=== PATIENT | male | born 1980 | race Two or more races ===

== ENCOUNTER 2019-04-20 13:15 | Inpatient (IN) | payer OTHER ==
[2019-04-20] MEDS ORDERED: MENTHOL/PHENOL 1 EACH UD MM PRN (14:34)
[2019-04-20] MEDS ORDERED: ACETAMINOPHEN 325 MG TABLET (FP) PO PRN (14:34)
[2019-04-20] MEDS ORDERED: METHOCARBAMOL 500 MG TABLET PO PRN (14:34)
[2019-04-20] MEDS ORDERED: ONDANSETRON *ODT* 4 MG TABLET SL PRN (14:34)
[2019-04-20] MEDS ORDERED: MELATONIN 5 MG TABLETS PO PRN (14:34)
[2019-04-20] MEDS ORDERED: hydrOXYzine PAMOATE 25 MG CAPSULE (FP) PO PRN (14:34)
[2019-04-20] MEDS ORDERED: NICOTINE POLACRILEX 4 MG GUM BUC PRN (14:34)
[2019-04-20] MEDS ORDERED: MAGNESIUM HYDROX 2400MG/30ML ORAL SUSPENSION 30 ML CUP PO PRN (14:34)
[2019-04-20] MEDS ORDERED: P-EPHED 60MG/TRIPROLIDI 2.5MG TABLET PO PRN (14:34)
[2019-04-20] MEDS ORDERED: MAGNESIUM CITRATE 300 ML BOTTLE PO PRN (14:34)
[2019-04-20] MEDS ORDERED: MAG HYDROX/AL HYDROX/SIMETH 30 ML UNIT-DOSE CUP PO PRN (14:34)
[2019-04-20] MEDS ORDERED: IBUPROFEN 400 MG TABLET (FP) PO PRN (14:34)
[2019-04-20] MEDS ORDERED: chlordiazePOXIDE HCL 25 MG CAPSULE PO PRN (14:34)
[2019-04-20] MEDS ORDERED: chlordiazePOXIDE HCL 25 MG CAPSULE PO ONE (14:34)
--- NOTE | 2019-04-20 14:34 | HP ---
CIWA Score Nausea/Vomitin Muscle Tremors: 4-Moderate,w/Arms Extend Anxiety: 4-Mod. Anxious/Guarded Agitation: 4-Moderately Restless Paroxysmal Sweats: 3 Orientation: 0-Oriented Tacttile Disturbances: 0-None Auditory Disturbances: 0-None Visual Disturbances: 0-None Headache: 1-Very Mild CIWA-Ar Total Score: 19 - Admission Criteria OASAS Guidelines: Admission for Medically Managed Detox: Requires at least one of the followin. CIWA greater than 12 2. Seizures within the past 24 hours 3. Delirium tremens within the past 24 hours 4. Hallucinations within the past 24 hours 5. Acute intervention needed for co occurring medical disorder 6. Acute intervention needed for co occurring psychiatric disorder 7. Severe withdrawal that cannot be handled at a lower level of care (continued vomiting, continued diarrhea, abnormal vital signs) requiring intravenous medication and/or fluids 8. Admission ROS S - HPI Chief Complaint: I need to stop drinking I need help. Allergies/Adverse Reactions: Allergies Allergy/AdvReac Type Severity Reaction Status Date / Time acetaminophen [From Tylenol] Allergy Verified 04/20/19 14:31 History of Present Illness: pt is a 39yrold male a history of alcohol dependence seeking detox for treatment. Pt has a h/o HTN, seizures, spinal surgery. pt has a h/o of jumping off the roof 2012 injuring both feet, leg and head. Pt has scar to back of head from fall. Pt uses wheelchair to assist with ambulating. pt states he fell with his wheelchair three days ago and left eyebrow cut noted. Cut is dry and healing. Exam Limitations: No Limitations - Ebola screening Have you traveled outside of the country in the last 21 days: No (N) Have you had contact with anyone from an Ebola affected area: No Have you been sick,other than usual withdrawal symptoms: No Do you have a fever: No - Review of Systems Constitutional: Diaphoresis, Loss of Appetite, Night Sweats, Changes in sleep, Unintentional Wgt. Loss EENT: reports: Blurred Vision, Nose Congestion Respiratory: reports: No Symptoms reported Cardiac: reports: Lightheadedness GI: reports: Nausea, Poor Fluid Intake, Vomiting : reports: No Symptoms Reported Musculoskeletal: reports: Back Pain Integumentary: reports: Bruising (to left eyebrow), Flushing Neuro: reports: Headache, Seizure (last seizure 2months ago), Tingling, Tremors Endocrine: reports: Excessive Sweating, Flushing, Intolerance to Cold, Intolerance to Heat Hematology: reports: No Symptoms Reported Psychiatric: reports: Judgement Intact, Mood/Affect Appropiate, Orientated x3, Agitated, Anxious Other Systems: Reviewed and Negative Patient History - Patient Medical History Hx Anemia: No Hx Asthma: No Hx Chronic Obstructive Pulmonary Disease (COPD): No Hx Cancer: No Hx Cardiac Disorders: No Hx Congestive Heart Failure: No Hx Hypertension: Yes Hx Hypercholesterolemia: No Hx Pacemaker: No HX Cerebrovascular Accident: No Hx Seizures: Yes (2months ago) Hx Dementia: No Hx Diabetes: No Hx Gastrointestinal Disorders: No Hx Liver Disease: No Hx Genitourinary Disorders: No Hx Sexually Transmitted Disorders: No Hx Renal Disease (ESRD): No Hx Thyroid Disease: No Hx Human Immunodeficiency Virus (HIV): No Hx Hepatitis C: No Hx Depression: Yes Hx Suicide Attempt: Yes (in the past jumping off the roof; pt denies any s/h ideations) Hx Bipolar Disorder: Yes Hx Schizophrenia: Yes Other Medical History: anxiety - Patient Surgical History Hx Orthopedic Surgery: Yes (spinal surgery) - PPD History Previous Implant?: Yes Documented Results: Negative w/o proof Implanted On Prior [facility] Admission?: Yes PPD to be Administered?: Yes - Reproductive History Patient is a Female of Child Bearing Age (11 -55 yrs old): No - Smoking Cessation Smoking history: Current every day smoker Have you smoked in the past 12 months: Yes Aproximately how many cigarettes per day: 10 Hx Chewing Tobacco Use: No Initiated information on smoking cessation: Yes 'Breaking Loose' booklet given: 04/20/19 - Substance & Tx. History Hx Alcohol Use: Yes Hx Substance Use: No Substance Use Type: Alcohol Hx Substance Use Treatment: No - Substances abused Alcohol Substance route: Oral Frequency: Daily Amount used: 3 pints of whiskey Age of first use: 11 Date of last use: 04/19/19 Family Disease History - Family Disease History Family History: Denies Admission Physical Exam BHS - Physical General Appearance: Yes: Appropriately Dressed, Moderate Distress, Tremorous, Irritable, Sweating, Anxious HEENTM: Yes: Normal Voice, Nasal Congestion, Rhinorrhea Respiratory: Yes: Lungs Clear, Normal Breath Sounds, No Respiratory Distress Neck: Yes: No masses,lesions,Nodules Breast: Yes: Within Normal Limits Cardiology: Yes: Regular Rhythm, Regular Rate, S1, S2 Abdominal: Yes: Normal Bowel Sounds, Non Tender, Soft Genitourinary: Yes: Within Normal Limits Back: Yes: Normal Inspection Musculoskeletal: Yes: full range of Motion, Back pain Extremities: Yes: Normal Capillary Refill, Tremors Neurological: Yes: Fully Oriented, Alert, Normal Response Integumentary: Yes: Diaphoresis Lymphatic: Yes: Within Normal Limits - Diagnostic (1) Alcohol dependence with uncomplicated withdrawal Current Visit: Yes Status: Chronic (2) H/O fall Current Visit: Yes Status: Chronic (3) H/O Spinal surgery Current Visit: Yes Status: Chronic (4) Nicotine dependence Current Visit: Yes Status: Chronic Qualifiers: Nicotine product type: cigarettes Substance use status: uncomplicated Qualified Code(s): F17.210 - Nicotine dependence, cigarettes, uncomplicated (5) Seizures Current Visit: Yes Status: Chronic Comment: last seizure 2 months ago Cleared for Admission [facility] - Detox or Rehab [facility] Level of Care: Medically Managed Detox Regimen/Protocol: Not Applicable (pt will be on ativan taper) Inpatient Rehab Admission - Rehab Decision to Admit Inpatient rehab admission?: No
[2019-04-20 14:53] VITALS: BMI 22.6
[2019-04-20] MEDS ORDERED: LORazepam 1 MG TABLET PO PRN (15:06)
[2019-04-20] MEDS ORDERED: TRIMETHOBENZAMIDE HCL 200MG/2ML INJ IM PRN (15:20)
[2019-04-20] MEDS ORDERED: TRIMETHOBENZAMIDE HCL 200MG/2ML INJ IM ONE (15:20)
[2019-04-20] MEDS ORDERED: LORazepam 2 MG TABLET PO ONE (15:25)
[2019-04-20] MEDS ORDERED: METOPROLOL TARTRATE 50 MG TABLET (FP) PO ONE (15:39)
[2019-04-20] MEDS ORDERED: chlordiazePOXIDE HCL 25 MG CAPSULE PO SCH (17:00)
[2019-04-20] MEDS: LORazepam 2 MG TABLET PO SCH ×2 (17:55→23:32)
[2019-04-20] MEDS: BACITRACIN 0.9 GM PACKET TP SCH (23:31)
[2019-04-20] MEDS: METOPROLOL TARTRATE 50 MG TABLET (FP) PO SCH (23:31)
[2019-04-20] MEDS: THIAMINE HCL 100 MG TABLET (FP) PO SCH (23:32)
[2019-04-20] MEDS: LACOSAMIDE 50 MG TABLET PO SCH (23:32)
[2019-04-21] MEDS: LORazepam 2 MG TABLET PO SCH ×2 (06:28→10:40)
[2019-04-21 10:40] LABS: ALBUMIN 3.4 g/dl (3.4-5.0); BILIRUBIN,TOTAL 0.7 mg/dL (0.2-1); CALCIUM 9.2 mg/dL (8.5-10.1); CREATININE 0.7 mg/dL (0.55-1.3); POTASSIUM 3.6 mmol/L (3.5-5.1); TOT PROT 7.2 g/dl (6.4-8.2)
[2019-04-21] MEDS: PRENATAL VITAMINS W/ FOLIC ACID TABLET (FP) PO SCH (10:40)
[2019-04-21] MEDS: LACOSAMIDE 50 MG TABLET PO SCH ×2 (10:40→22:46)
[2019-04-21] MEDS: NICOTINE 21 MG/24 HOURS TOPICAL PATCH TD SCH (10:40)
[2019-04-21] MEDS: BACITRACIN 0.9 GM PACKET TP SCH ×2 (10:40→22:47)
[2019-04-21] MEDS: METOPROLOL TARTRATE 50 MG TABLET (FP) PO SCH ×2 (10:40→22:46)
--- NOTE | 2019-04-21 11:23 | PN ---
S CIWA - CIWA Score Nausea/Vomitin-Mild Nausea/No Vomiting Muscle Tremors: 4-Moderate,w/Arms Extend Anxiety: 3 Agitation: 4-Moderately Restless Paroxysmal Sweats: 3 Orientation: 0-Oriented Tacttile Disturbances: 0-None Auditory Disturbances: 0-None Visual Disturbances: 0-None Headache: 0-None Present CIWA-Ar Total Score: 15 BHS Progress Note (SOAP) Subjective: sweats shakes low appetite Objective: 04/21/19 11:22 Vital Signs Temperature 98.2 F 04/21/19 09:27 Pulse Rate 89 04/21/19 09:27 Respiratory Rate 18 04/21/19 09:27 Blood Pressure 124/80 04/21/19 09:27 O2 Sat by Pulse Oximetry (%) Laboratory Tests 04/21/19 08:20 Sodium 140 Potassium 3.6 Chloride 103 Carbon Dioxide 27 Anion Gap 10 BUN 9.0 Creatinine 0.7 Est GFR (CKD-EPI)AfAm 136.81 Est GFR (CKD-EPI)NonAf 118.04 Random Glucose 113 H Calcium 9.2 Total Bilirubin 0.7 AST 92 H ALT 49 Alkaline Phosphatase 118 H Total Protein 7.2 Albumin 3.4 labs noted rest of labs pending aaox3 in wheelchair for ambulating no acute distress Assessment: 04/21/19 11:22 withdrawal sx Plan: continue detox increase fluids pending rest of labs
[2019-04-21 11:51] LABS: HEMATOCRIT 33.9 % (35.4-49); HEMOGLOBIN 10.8 GM/dL (11.7-16.9); MCH 26.5 pg (25.7-33.7); MCHC 31.9 g/dl (32.0-35.9); MEAN PLT VOLUME 8.3 fl (7.5-11.1); RBC 4.08 M/mm3 (4.00-5.60); RDW 24.7 % (11.9-15.9); WHITE BLOOD COUNT 6.1 K/mm3 (4.0-10.0)
[2019-04-21] MEDS ORDERED: chlordiazePOXIDE HCL 25 MG CAPSULE PO SCH (17:00)
--- NOTE | 2019-04-21 17:49 | CONSULT ---
[facility] Psychiatric Consult - Data Date of interview: 04/21/19 Admission source: [facility] Identifying data: First admission to [facility] for this 39 y/o -born male referred, by his psychiatric outpatient team, to [facility] for detoxification ( alcohol). Interviewed at [address] [place] [address]. Patient is single, no children, domiciled, unemployed (disabled) and supported by his relatives. Substance Abuse History: Discussed patient. Started using alcohol around age 14. Consumes qa minimum of 3 pints of whiskey daily. See [facility] report for details : Smoking history: Current every day smoker. Have you smoked in the past 12 months: Yes. Aproximately how many cigarettes per day: 10. Hx Chewing Tobacco Use: No. Initiated information on smoking cessation: Yes. 'Breaking Loose' booklet given: 04/20/19. - Substance & Tx. History. Hx Alcohol Use: Yes. Hx Substance Use: No. Substance Use Type: Alcohol. Hx Substance Use Treatment: No. - Substances abused. Alcohol. Substance route: Oral. Frequency: Daily. Amount used: 3 pints of whiskey. Age of first use: 11. Date of last use: 04/19/19 Medical History: Remarkable for severe spinal injury from a suicide attempt in 2011 (jumping off an overpass in [place]) that led to his wheelchair-bound situation, hypertension and withdrawal-related seizures. Psychiatric History: Patient reports a history of psychiatric hospitalizations ( [facility], [facility]). Last hospitalized in 2011. Mr Smith has been diagnosed with MDD and Anxiety Disorder. He states that he is followed by a psychiatric, ACT-like, team for medication management (lexapro, trazodone : doses not recalled). Call to [facility] ([phone]) went unanswered. Noted serious history of a suicide attempt, via jumping from an overpass in [place] in 2012 : wheelchair-bound since the event (spinal injuries, head trauma, injury to lower extremities). Physical/Sexual Abuse/Trauma History: Patient denies history of abuse. 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 Additional Comment: Toxicology : not available for review. Mental Status Exam - Mental Status Exam Alert and Oriented to: Time, Place, Person Cognitive Function: Good Patient Appearance: Well Groomed (wheelchair-bound) Mood: Hopeful Affect: Appropriate, Normal Range Patient Behavior: Appropriate, Cooperative (friendly and well-mannered) Speech Pattern: Clear, Appropriate Voice Loudness: Normal Thought Process: Intact, Goal Oriented Thought Disorder: Not Present Hallucinations: Denies Suicidal Ideation: Denies Homicidal Ideation: Denies Insight/Judgement: Poor Sleep: Poorly, Difficulty falling asleep Appetite: Poor, Weight loss Gait/Station: Other (moves around in a wheelchair) Psychiatric Findings - Problem List ([place] 1, 2,3) (1) Alcohol dependence with uncomplicated withdrawal Current Visit: Yes Status: Acute (2) Nicotine dependence Current Visit: Yes Status: Chronic Qualifiers: Nicotine product type: cigarettes Substance use status: uncomplicated Qualified Code(s): F17.210 - Nicotine dependence, cigarettes, uncomplicated (3) History of depression Current Visit: Yes Status: Chronic (4) Insomnia Current Visit: Yes Status: Chronic - Initial Treatment Plan Initial Treatment Plan: Psychoeducation. Detoxification in progress. Support and empathy. AA meetings. Methods of relapse prevention (MAT) : revisited with the patient. Trazodone 50 mg po hs. Side effects/benefits discussed. Patient is made aware of potential for priapism. Consent (verbal) given to MD. Observation. Patient states that he has an adequate supply of medications at home (no scripts needed at discharge from [facility]).
[2019-04-21 17:52] LABS: PLATELET COUNT 261 K/MM3 (134-434)
[2019-04-21] MEDS: LORazepam 1 MG TABLET PO SCH ×2 (20:34→22:46)
[2019-04-21] MEDS: traZODone HCL 50 MG TABLET (FP) PO SCH (22:45)
[2019-04-21] MEDS: THIAMINE HCL 100 MG TABLET (FP) PO SCH (22:59)
[2019-04-22] MEDS: LORazepam 1 MG TABLET PO SCH ×2 (05:57→10:41)
[2019-04-22] MEDS: METOPROLOL TARTRATE 50 MG TABLET (FP) PO SCH ×2 (10:41→22:22)
[2019-04-22] MEDS: PRENATAL VITAMINS W/ FOLIC ACID TABLET (FP) PO SCH (10:41)
[2019-04-22] MEDS: BACITRACIN 0.9 GM PACKET TP SCH ×2 (10:41→22:22)
[2019-04-22] MEDS: NICOTINE 21 MG/24 HOURS TOPICAL PATCH TD SCH (10:42)
[2019-04-22] MEDS: LACOSAMIDE 50 MG TABLET PO SCH ×2 (11:01→22:27)
--- NOTE | 2019-04-22 12:29 | PN ---
S CIWA - CIWA Score Nausea/Vomitin-Mild Nausea/No Vomiting Muscle Tremors: 3 Anxiety: 3 Agitation: 3 Paroxysmal Sweats: 3 Orientation: 0-Oriented Tacttile Disturbances: 0-None Auditory Disturbances: 0-None Visual Disturbances: 0-None Headache: 0-None Present CIWA-Ar Total Score: 13 BHS Progress Note (SOAP) Subjective: Interrupted sleep. Patient stated his withdrawal symptoms are controlled with the medication and he is feeling better. Objective: 04/22/19 12:31 Last Vital Signs Temp Pulse Resp BP Pulse Ox 97.0 F L 102 H 16 132/92 04/22/19 09:12 04/22/19 09:12 04/22/19 09:12 04/22/19 09:12 Elevated b/p noted (has htn, on medication) Laboratory Tests 04/21/19 04/21/19 04/21/19 08:00 08:20 08:20 WBC 6.1 RBC 4.08 Hgb 10.8 L Hct 33.9 L MCV 83.0 MCH 26.5 MCHC 31.9 L RDW 24.7 H Plt Count 261 MPV 8.3 Sodium 140 Potassium 3.6 Chloride 103 Carbon Dioxide 27 Anion Gap 10 BUN 9.0 Creatinine 0.7 Est GFR (CKD-EPI)AfAm 136.81 Est GFR (CKD-EPI)NonAf 118.04 Random Glucose 113 H Calcium 9.2 Total Bilirubin 0.7 AST 92 H ALT 49 Alkaline Phosphatase 118 H Total Protein 7.2 Albumin 3.4 RPR Titer Nonreactive HIV 1&2 Antibody Screen HIV P24 Antigen 04/21/19 09:00 WBC RBC Hgb Hct MCV MCH MCHC RDW Plt Count MPV Sodium Potassium Chloride Carbon Dioxide Anion Gap BUN Creatinine Est GFR (CKD-EPI)AfAm Est GFR (CKD-EPI)NonAf Random Glucose Calcium Total Bilirubin AST ALT Alkaline Phosphatase Total Protein Albumin RPR Titer HIV 1&2 Antibody Screen Negative HIV P24 Antigen Negative Labs reviewed Assessment: 04/22/19 12:33 Withdrawal symptoms Plan: Continue detox Encouraged PO water hydration
[2019-04-22] MEDS: LORazepam 0.5 MG TABLET PO SCH ×2 (16:46→22:22)
[2019-04-22] MEDS ORDERED: chlordiazePOXIDE HCL 10 MG CAPSULE PO SCH (17:00)
[2019-04-22] MEDS ORDERED: LORazepam 0.5 MG TABLET PO PRN (17:00)
[2019-04-22] MEDS: THIAMINE HCL 100 MG TABLET (FP) PO SCH (22:22)
[2019-04-22] MEDS: traZODone HCL 50 MG TABLET (FP) PO SCH (22:22)
[2019-04-23] MEDS: LORazepam 0.5 MG TABLET PO SCH ×2 (06:40→10:44)
--- NOTE | 2019-04-23 09:30 | DS ---
[facility] Detox Discharge Summary Admission Date: 04/20/19 Discharge Date: 04/23/19 - History Present History: Alcohol Dependence - Physical Exam Results Vital Signs: Vital Signs Temperature 97.9 F 04/23/19 09:12 Pulse Rate 67 04/23/19 09:12 Respiratory Rate 20 04/23/19 09:12 Blood Pressure 114/60 04/23/19 09:12 O2 Sat by Pulse Oximetry (%) - Treatment Hospital Course: Detox Protocol Followed, Detoxed Safely, Responded well, Discharged Condition Good, Rehab Referral Accepted - Medication Discharge Medications: Ambulatory Orders Lacosamide [Vimpat -] 50 mg PO BID 04/20/19 Multivitamin [One-Daily Multi-Vitamin] 1 each PO DAILY 04/20/19 - Diagnosis (1) Alcohol dependence with uncomplicated withdrawal Current Visit: Yes Status: Chronic (2) H/O fall Current Visit: Yes Status: Chronic (3) H/O Spinal surgery Current Visit: Yes Status: Chronic (4) Nicotine dependence Current Visit: Yes Status: Chronic Qualifiers: Nicotine product type: cigarettes Substance use status: uncomplicated Qualified Code(s): F17.210 - Nicotine dependence, cigarettes, uncomplicated (5) Seizures Current Visit: Yes Status: Chronic - AMA Did Patient Leave Against Medical Advice: No (pt declined aftercare; going home )
[2019-04-23] MEDS: NICOTINE 21 MG/24 HOURS TOPICAL PATCH TD SCH (10:44)
[2019-04-23] MEDS: LACOSAMIDE 50 MG TABLET PO SCH (10:44)
[2019-04-23] MEDS: METOPROLOL TARTRATE 50 MG TABLET (FP) PO SCH (10:44)
[2019-04-23] MEDS: BACITRACIN 0.9 GM PACKET TP SCH (10:44)
[2019-04-23] MEDS: PRENATAL VITAMINS W/ FOLIC ACID TABLET (FP) PO SCH (10:44)
[2019-04-23 12:51] VITALS: BP 142/82; PULSE 84; TEMP 97.5
[2019-04-23] MEDS ORDERED: chlordiazePOXIDE HCL 10 MG CAPSULE PO SCH (17:00)
== END 2019-04-23 13:27 | disposition home or self-care (01) | DRG 775 ==
LOC: YASAS 13:15 → Y6N 14:57
PROVIDERS: ADMIT Surgery; ATTEND Surgery
PROC: HZ2ZZZZ Detoxification Services for Substance Abuse Treatment (ICD-10-PCS; principal; 2019-04-20)
DX: F10.230 Alcohol dependence with withdrawal, uncomplicated (principal); F17.210 Nicotine dependence, cigarettes, uncomplicated; F33.9 Major depressive disorder, recurrent, unspecified; F41.9 Anxiety disorder, unspecified; F32.9 Major depressive disorder, single episode, unspecified; F31.9 Bipolar disorder, unspecified; G47.00 Insomnia, unspecified; G40.909 Epilepsy, unspecified, not intractable, without status epilepticus; I10 Essential (primary) hypertension; Z91.81 History of falling; Z91.5 Personal history of self-harm; Z98.890 Other specified postprocedural states; Z99.3 Dependence on wheelchair
CPT/HCPCS: 36415; 80053; 85027; 86593; 87389; Q0162

== ENCOUNTER 2019-09-12 11:03 | Inpatient (IN) | payer OTHER ==
[2019-09-12 11:28] VITALS: BMI 22.0
--- NOTE | 2019-09-12 12:22 | HP ---
CIWA Score Nausea/Vomitin Muscle Tremors: 3 Anxiety: 2 Agitation: 2 Paroxysmal Sweats: 3 Orientation: 2-Disoriented Date<2 days Tacttile Disturbances: 1-Very Mild Itch/Numbness Auditory Disturbances: 0-None Visual Disturbances: 0-None Headache: 3-Moderate CIWA-Ar Total Score: 19 - Admission Criteria OASAS Guidelines: Admission for Medically Managed Detox: Requires at least one of the followin. CIWA greater than 12 2. Seizures within the past 24 hours 3. Delirium tremens within the past 24 hours 4. Hallucinations within the past 24 hours 5. Acute intervention needed for co occurring medical disorder 6. Acute intervention needed for co occurring psychiatric disorder 7. Severe withdrawal that cannot be handled at a lower level of care (continued vomiting, continued diarrhea, abnormal vital signs) requiring intravenous medication and/or fluids 8. Admitting History and Physical - Admission Chief Complaint: " I want to stop drinking alcohol." History of Present Illness: 39 year old male with history of alcohol dependence with withdrawals. He was last here for detox in 04/2019 and completed detox but did not continue to rehab. He immediately relapsed thereafter. He has a seizure disorder and has HTN. He attempted suicide jumping off a bridge 2013. He says he is depressed but denies ideation or plans. He also has severe anxiety disorder. Patient smoking 1 ppd for many years, last smoked today. HE is drinking 1 pint of vodka daily, last drank at 1AM this morning. He has no support systems in place He is domiciled with brother in law and sister. He wishes to detox and then follow up with rehab. 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 In wheel chair bound - Smoking History Smoking history: Current every day smoker Have you smoked in the past 12 months: Yes Aproximately how many cigarettes per day: 10 - Alcohol/Substance Use Hx Alcohol Use: Yes Admission ROS [facility] Chief Complaint: " I want to stop drinking alcohol." Allergies/Adverse Reactions: Allergies Allergy/AdvReac Type Severity Reaction Status Date / Time acetaminophen [From Tylenol] Allergy Verified 09/12/19 11:18 levetiracetam [From Keppra] Allergy Vomiting Verified 09/12/19 11:18 - Ebola screening Have you traveled outside of the country in the last 21 days: No Have you had contact with anyone from an Ebola affected area: No Have you been sick,other than usual withdrawal symptoms: No Do you have a fever: No - Review of Systems Constitutional: Chills, Diaphoresis EENT: reports: No Symptoms Reported Respiratory: reports: No Symptoms reported Cardiac: reports: No Symptoms Reported GI: reports: Abdominal Distended, Nausea : reports: No Symptoms Reported Musculoskeletal: reports: Back Pain, Muscle Pain Integumentary: reports: No Symptoms Reported Neuro: reports: Headache, Tremors Endocrine: reports: No Symptoms Reported Hematology: reports: No Symptoms Reported Psychiatric: reports: Judgement Intact, Anxious, Depressed Other Systems: Reviewed and Negative Patient History - Patient Medical History Hx Anemia: No Hx Asthma: No Hx Chronic Obstructive Pulmonary Disease (COPD): No Hx Cancer: No Hx Cardiac Disorders: No Hx Congestive Heart Failure: No Hx Hypertension: Yes Hx Hypercholesterolemia: No Hx Pacemaker: No HX Cerebrovascular Accident: No Hx Seizures: Yes (2months ago) Hx Dementia: No Hx Diabetes: No Hx Gastrointestinal Disorders: No Hx Liver Disease: No Hx Genitourinary Disorders: No Hx Sexually Transmitted Disorders: No Hx Renal Disease (ESRD): No Hx Thyroid Disease: No Hx Human Immunodeficiency Virus (HIV): No Hx Hepatitis C: No Hx Depression: Yes Hx Suicide Attempt: Yes (in the past jumping off the roof; pt denies any s/h ideations) Hx Bipolar Disorder: Yes Hx Schizophrenia: Yes - Patient Surgical History Past Surgical History: Yes Hx Neurologic Surgery: Yes (spinal sx cranial sx in 2011) Hx Orthopedic Surgery: Yes (spinal surgery) Anesthesia Reaction: No - PPD History Date: 04/22/19 - Smoking Cessation Smoking history: Current every day smoker Have you smoked in the past 12 months: Yes Aproximately how many cigarettes per day: 10 Hx Chewing Tobacco Use: No Initiated information on smoking cessation: Yes 'Breaking Loose' booklet given: 09/12/19 - Substances abused Alcohol Substance route: Oral Frequency: Daily Amount used: 2 pints of whiskey Age of first use: 11 Date of last use: 09/12/19 Admission Physical Exam BHS - Vital Signs Vital Signs: Vital Signs - 24 hr 09/12/19 11:24 Temperature 97.0 F L Pulse Rate 100 H Respiratory 20 Rate Blood Pressure 130/84 - Physical General Appearance: Yes: Mild Distress HEENTM: Yes: EOMI, Hearing grossly Normal, Normal ENT Inspection, Normocephalic , Normal Voice, MILLY, Pharynx Normal, Tm's normal Respiratory: Yes: Chest Non-Tender, Lungs Clear, No Respiratory Distress, No Accessory Muscle Use Neck: Yes: No masses,lesions,Nodules, Supple, Trachea in good position Breast: Yes: Within Normal Limits Cardiology: Yes: Regular Rhythm, Regular Rate, S1, S2 Abdominal: Yes: Normal Bowel Sounds, Non Tender, Flat, Soft Genitourinary: Yes: Within Normal Limits Back: Yes: Normal Inspection Musculoskeletal: Yes: full range of Motion, Gait Steady Extremities: Yes: Normal Capillary Refill, Normal Inspection, Normal Range of Motion, Non-Tender Neurological: Yes: television program director II-XII NML intact, Fully Oriented, Alert, Motor Strength 5/5, Normal Response, Depressed Affect Integumentary: Yes: Normal Color, Warm Lymphatic: Yes: Within Normal Limits - Diagnostic (1) Alcohol dependence with uncomplicated withdrawal Current Visit: Yes Status: Chronic (2) H/O Spinal surgery Current Visit: Yes Status: Chronic (3) H/O fall Current Visit: Yes Status: Chronic (4) History of depression Current Visit: Yes Status: Chronic (5) Insomnia Current Visit: Yes Status: Chronic (6) Nicotine dependence Current Visit: Yes Status: Chronic Qualifiers: Nicotine product type: cigarettes Substance use status: uncomplicated Qualified Code(s): F17.210 - Nicotine dependence, cigarettes, uncomplicated (7) Seizures Current Visit: Yes Status: Chronic Comment: last seizure 2 months ago Screened but not Admitted - Documentation of Visit Screened but not Admitted: No Breathalyzer - Breathalyzer Breathalyzer: 115 Urine Drug Screen - Test Device Lot number: [id number] Expiration date: 05/13/21 - Control Is test valid?: Yes - Results Drug screen NEGATIVE: No Urine drug screen results: BZO-Benzodiazepines Inpatient Rehab Admission - Rehab Decision to Admit Inpatient rehab admission?: No
[2019-09-12] MEDS ORDERED: MAGNESIUM HYDROX 2400MG/30ML ORAL SUSPENSION 30 ML CUP PO PRN (12:27)
[2019-09-12] MEDS ORDERED: MAGNESIUM CITRATE 300 ML BOTTLE PO PRN (12:27)
[2019-09-12] MEDS ORDERED: IBUPROFEN 400 MG TABLET (FP) PO PRN (12:27)
[2019-09-12] MEDS ORDERED: MAG HYDROX/AL HYDROX/SIMETH 30 ML UNIT-DOSE CUP PO PRN (12:27)
[2019-09-12] MEDS ORDERED: METHOCARBAMOL 500 MG TABLET PO PRN (12:27)
[2019-09-12] MEDS ORDERED: MELATONIN 5 MG TABLETS PO PRN (12:27)
[2019-09-12] MEDS ORDERED: MENTHOL/PHENOL 1 EACH UD MM PRN (12:27)
[2019-09-12] MEDS ORDERED: BISMUTH SUBSALICYLATE 262 MG/15 ML BTL PO PRN (12:27)
[2019-09-12] MEDS ORDERED: ACETAMINOPHEN 325 MG TABLET (FP) PO PRN ×2 (12:27)
[2019-09-12] MEDS: LORazepam 2 MG TABLET PO SCH ×2 (17:07→22:12)
[2019-09-12] MEDS: hydrOXYzine PAMOATE 25 MG CAPSULE (FP) PO PRN (17:10)
[2019-09-12 17:54] LABS: HEMATOCRIT 36.1 % (35.4-49); HEMOGLOBIN 11.1 GM/dL (11.7-16.9); MCH 27.6 pg (25.7-33.7); MCHC 30.7 g/dl (32.0-35.9); MEAN CELL VOLUME 89.7 fl (80-96); PLATELET COUNT 361 K/MM3 (134-434); RBC 4.03 M/mm3 (4.00-5.60); WHITE BLOOD COUNT 9.8 K/mm3 (4.0-10.0)
[2019-09-12 18:02] LABS: ALBUMIN 3.5 g/dl (3.4-5.0); BILIRUBIN,TOTAL 0.4 mg/dL (0.2-1); BLOOD UREA NITROGEN 7.7 mg/dL (7-18); CALCIUM 8.7 mg/dL (8.5-10.1); CREATININE 0.6 mg/dL (0.55-1.3); POTASSIUM 4.1 mmol/L (3.5-5.1); TOT PROT 7.8 g/dl (6.4-8.2)
[2019-09-12] MEDS: LORazepam 1 MG TABLET PO PRN (19:55)
[2019-09-12] MEDS: LACOSAMIDE 50 MG TABLET PO SCH (22:12)
[2019-09-12] MEDS: THIAMINE HCL 100 MG TABLET (FP) PO SCH (22:12)
[2019-09-13] MEDS: LORazepam 2 MG TABLET PO SCH ×4 (05:47→22:08)
[2019-09-13] MEDS: LACOSAMIDE 50 MG TABLET PO SCH ×2 (10:24→20:59)
[2019-09-13] MEDS: PRENATAL VITAMINS W/ FOLIC ACID TABLET (FP) PO SCH (10:24)
[2019-09-13] MEDS: NICOTINE 14 MG/24 HOURS TOPICAL PATCH TD SCH (10:25)
[2019-09-13] MEDS: metoPROLOL SUCCINATE 25 MG TAB.SR.24H (FP) PO SCH (10:25)
--- NOTE | 2019-09-13 11:59 | PN ---
S CIWA - CIWA Score Nausea/Vomitin-Mild Nausea/No Vomiting Muscle Tremors: 1-None Visible, but [place] Anxiety: 2 Agitation: 2 Paroxysmal Sweats: No Perspiration Orientation: 0-Oriented Tacttile Disturbances: 1-Very Mild Itch/Numbness Auditory Disturbances: 0-None Visual Disturbances: 0-None Headache: 1-Very Mild CIWA-Ar Total Score: 8 BHS Progress Note (SOAP) Subjective: alert,irritable,anxious,interrupted,tremor Objective: 09/13/19 11:56 Vital Signs Temperature 96.9 F L 09/13/19 09:17 Pulse Rate 80 09/13/19 09:17 Respiratory Rate 16 09/13/19 09:17 Blood Pressure 138/81 09/13/19 09:17 O2 Sat by Pulse Oximetry (%) Laboratory Last Values WBC 9.8 K/mm3 (4.0-10.0) 09/12/19 13:08 RBC 4.03 M/mm3 (4.00-5.60) 09/12/19 13:08 Hgb 11.1 GM/dL (11.7-16.9) L 09/12/19 13:08 Hct 36.1 % (35.4-49) 09/12/19 13:08 MCV 89.7 fl (80-96) 09/12/19 13:08 MCH 27.6 pg (25.7-33.7) 09/12/19 13:08 MCHC 30.7 g/dl (32.0-35.9) L 09/12/19 13:08 RDW 20.0 % (11.9-15.9) H 09/12/19 13:08 Plt Count 361 K/MM3 (134-434) D 09/12/19 13:08 MPV 8.0 fl (7.5-11.1) 09/12/19 13:08 Sodium 140 mmol/L (136-145) 09/12/19 13:08 Potassium 4.1 mmol/L (3.5-5.1) 09/12/19 13:08 Chloride 104 mmol/L (98-107) 09/12/19 13:08 Carbon Dioxide 28 mmol/L (21-32) 09/12/19 13:08 Anion Gap 8 MMOL/L (8-16) 09/12/19 13:08 BUN 7.7 mg/dL (7-18) 09/12/19 13:08 Creatinine 0.6 mg/dL (0.55-1.3) 09/12/19 13:08 Est GFR (CKD-EPI)AfAm 145.76 09/12/19 13:08 Est GFR (CKD-EPI)NonAf 125.77 09/12/19 13:08 Random Glucose 133 mg/dL (74-106) H 09/12/19 13:08 Calcium 8.7 mg/dL (8.5-10.1) 09/12/19 13:08 Total Bilirubin 0.4 mg/dL (0.2-1) 09/12/19 13:08 AST 116 U/L (15-37) H 09/12/19 13:08 ALT 50 U/L (13-61) 09/12/19 13:08 Alkaline Phosphatase 120 U/L (45-117) H 09/12/19 13:08 Total Protein 7.8 g/dl (6.4-8.2) 09/12/19 13:08 Albumin 3.5 g/dl (3.4-5.0) 09/12/19 13:08 RPR Titer Nonreactive (NONREACTIVE) 09/12/19 13:08 Assessment: 09/13/19 11:57 withdrawal symptom Plan: continue detox ativan regimen,repeat fasting glucose cmp in am initial glucose 133,cmp in am
[2019-09-13] MEDS: THIAMINE HCL 100 MG TABLET (FP) PO SCH (20:59)
[2019-09-14] MEDS: LORazepam 1 MG TABLET PO PRN (01:13)
[2019-09-14] MEDS: hydrOXYzine PAMOATE 25 MG CAPSULE (FP) PO PRN (01:13)
[2019-09-14] MEDS: LORazepam 1 MG TABLET PO SCH ×2 (06:05→11:24)
[2019-09-14 06:25] VITALS: TEMP 97.7
[2019-09-14 09:04] VITALS: BP 131/85; PULSE 69
[2019-09-14] MEDS: PRENATAL VITAMINS W/ FOLIC ACID TABLET (FP) PO SCH (09:52)
[2019-09-14] MEDS: LACOSAMIDE 50 MG TABLET PO SCH (09:52)
[2019-09-14] MEDS: metoPROLOL SUCCINATE 25 MG TAB.SR.24H (FP) PO SCH (09:52)
[2019-09-14] MEDS: NICOTINE 14 MG/24 HOURS TOPICAL PATCH TD SCH (09:53)
[2019-09-14 10:21] LABS: ALBUMIN 3.2 g/dl (3.4-5.0); BILIRUBIN,TOTAL 0.7 mg/dL (0.2-1); BLOOD UREA NITROGEN 9.1 mg/dL (7-18); CALCIUM 8.9 mg/dL (8.5-10.1); CREATININE 0.6 mg/dL (0.55-1.3); POTASSIUM 3.9 mmol/L (3.5-5.1); TOT PROT 7.3 g/dl (6.4-8.2)
--- NOTE | 2019-09-14 10:38 | PN ---
[facility] Progress Note Note: Patient left [facility]ACK reports his father . Patient advised on the risk of interrupting treatment. Patient reports will see his primary care doctor today. Patient advised to seek medical attention if worsening symptoms are present. Patient verbalizes understanding. Follow up with outpatient referrals.
--- NOTE | 2019-09-14 10:43 | DS ---
[facility] Detox Discharge Summary Admission Date: 09/12/19 Discharge Date: 09/14/19 - History Present History: Alcohol Dependence Additional Comments: Patient left AMA. Advised on the risk of interrupting treatment. Patient to follow up with primary care provider. Follow up with attached referrals. Pertinent Past History: Vital Signs Temperature 97.7 F 09/14/19 09:03 Pulse Rate 69 09/14/19 09:03 Respiratory Rate 18 09/14/19 09:03 Blood Pressure 131/85 09/14/19 09:03 O2 Sat by Pulse Oximetry (%) Laboratory Last Values WBC 9.8 K/mm3 (4.0-10.0) 09/12/19 13:08 RBC 4.03 M/mm3 (4.00-5.60) 09/12/19 13:08 Hgb 11.1 GM/dL (11.7-16.9) L 09/12/19 13:08 Hct 36.1 % (35.4-49) 09/12/19 13:08 MCV 89.7 fl (80-96) 09/12/19 13:08 MCH 27.6 pg (25.7-33.7) 09/12/19 13:08 MCHC 30.7 g/dl (32.0-35.9) L 09/12/19 13:08 RDW 20.0 % (11.9-15.9) H 09/12/19 13:08 Plt Count 361 K/MM3 (134-434) D 09/12/19 13:08 MPV 8.0 fl (7.5-11.1) 09/12/19 13:08 Sodium 140 mmol/L (136-145) 09/14/19 07:40 Potassium 3.9 mmol/L (3.5-5.1) 09/14/19 07:40 Chloride 104 mmol/L (98-107) 09/14/19 07:40 Carbon Dioxide 25 mmol/L (21-32) 09/14/19 07:40 Anion Gap 10 MMOL/L (8-16) 09/14/19 07:40 BUN 9.1 mg/dL (7-18) 09/14/19 07:40 Creatinine 0.6 mg/dL (0.55-1.3) 09/14/19 07:40 Est GFR (CKD-EPI)AfAm 145.76 09/14/19 07:40 Est GFR (CKD-EPI)NonAf 125.77 09/14/19 07:40 Random Glucose 90 mg/dL (74-106) 09/14/19 07:40 Fasting Glucose 90 mg/dL (74-106) 09/14/19 07:40 Calcium 8.9 mg/dL (8.5-10.1) 09/14/19 07:40 Total Bilirubin 0.7 mg/dL (0.2-1) 09/14/19 07:40 AST 123 U/L (15-37) H 09/14/19 07:40 ALT 51 U/L (13-61) 09/14/19 07:40 Alkaline Phosphatase 117 U/L (45-117) 09/14/19 07:40 Total Protein 7.3 g/dl (6.4-8.2) 09/14/19 07:40 Albumin 3.2 g/dl (3.4-5.0) L 09/14/19 07:40 RPR Titer Nonreactive (NONREACTIVE) 09/12/19 13:08 Patient Aox3 no acute distress No SI / HI EENT WNL No adventitious breath sounds Full ROM getting around the unit in manual wheelchair - Physical Exam Results Vital Signs: Vital Signs Temperature 97.7 F 09/14/19 09:03 Pulse Rate 69 09/14/19 09:03 Respiratory Rate 18 09/14/19 09:03 Blood Pressure 131/85 09/14/19 09:03 O2 Sat by Pulse Oximetry (%) - Treatment Hospital Course: Discharged Condition Good Patient has Accepted a Rehab Referral to: OUT PATIENT REFERRALS - Medication Discharge Medications: Ambulatory Orders Lacosamide [Vimpat -] 50 mg PO BID 04/20/19 Multivitamin [One-Daily Multi-Vitamin] 1 each PO DAILY 04/20/19 Metoprolol Succinate [Toprol Xl] 25 mg PO DAILY 09/12/19 - Diagnosis (1) Uses wheelchair Current Visit: Yes Status: Acute (2) Essential (primary) hypertension Current Visit: Yes Status: Chronic (3) Alcohol dependence with uncomplicated withdrawal Current Visit: Yes Status: Chronic (4) Nicotine dependence Current Visit: Yes Status: Chronic Qualifiers: Nicotine product type: cigarettes Substance use status: uncomplicated Qualified Code(s): F17.210 - Nicotine dependence, cigarettes, uncomplicated (5) Seizures Current Visit: Yes Status: Chronic - AMA Did Patient Leave Against Medical Advice: Yes
[2019-09-15] MEDS ORDERED: LORazepam 0.5 MG TABLET PO PRN
[2019-09-15] MEDS ORDERED: LORazepam 0.5 MG TABLET PO SCH (05:00)
[2019-09-16] MEDS ORDERED: LORazepam 0.5 MG TABLET PO ONE (05:00)
== END 2019-09-14 14:08 | disposition left against medical advice (07) | DRG 770 ==
LOC: YASAS 11:03 → Y3N 12:35
PROVIDERS: ADMIT Allergy & Immunology; ATTEND Allergy & Immunology
PROC: HZ2ZZZZ Detoxification Services for Substance Abuse Treatment (ICD-10-PCS; principal; 2019-09-12)
DX: F10.230 Alcohol dependence with withdrawal, uncomplicated (principal); F17.210 Nicotine dependence, cigarettes, uncomplicated; F41.9 Anxiety disorder, unspecified; I10 Essential (primary) hypertension; G40.909 Epilepsy, unspecified, not intractable, without status epilepticus; G47.00 Insomnia, unspecified; Z99.3 Dependence on wheelchair; Z88.8 Allergy status to other drugs, medicaments and biological substances; Z91.5 Personal history of self-harm
CPT/HCPCS: 36415; 80053; 82947; 85027; 86593

== ENCOUNTER 2022-05-21 13:32 | Inpatient (IN) | payer OTHER ==
[2022-05-21 15:18] VITALS: BMI 22.4
[2022-05-21] MEDS ORDERED: MAGNESIUM CITRATE 300 ML BOTTLE PO PRN (16:43)
[2022-05-21] MEDS ORDERED: guaiFENesin 200 MG/10 ML 10 ML UNIT-DOSE CUPS PO PRN (16:43)
[2022-05-21] MEDS ORDERED: MAGNESIUM HYDROX 2400MG/30ML ORAL SUSPENSION 30 ML CUP PO PRN (16:43)
[2022-05-21] MEDS ORDERED: P-EPHED 60MG/TRIPROLIDI 2.5MG TABLET PO PRN (16:43)
[2022-05-21] MEDS ORDERED: LOPERAMIDE HCL 2 MG CAPSULE PO PRN (16:43)
[2022-05-21] MEDS ORDERED: MAG HYDROX/AL HYDROX/SIMETH 30 ML UNIT-DOSE CUP PO PRN (16:43)
[2022-05-21] MEDS: hydrOXYzine PAMOATE 25 MG CAPSULE (FP) PO SCH ×2 (19:07→21:37)
[2022-05-21] MEDS: THIAMINE HCL 100 MG TABLET (FP) PO SCH (21:37)
[2022-05-21] MEDS: MELATONIN 5 MG TABLETS PO SCH (21:37)
[2022-05-21] MEDS: METHOCARBAMOL 500 MG TABLET PO PRN (21:39)
[2022-05-21] MEDS: IBUPROFEN 400 MG TABLET (FP) PO PRN (21:39)
[2022-05-21] MEDS ORDERED: TUBERCULIN PPD 5 TU/0.1ML VIAL ID ONE (22:33)
[2022-05-22] MEDS: hydrOXYzine PAMOATE 25 MG CAPSULE (FP) PO SCH ×5 (06:04→21:53)
[2022-05-22] MEDS: PRENATAL VITAMINS W/ FOLIC ACID TABLET (FP) PO SCH (10:19)
[2022-05-22] MEDS: NICOTINE 7 MG/24 HOURS TOPICAL PATCH TD SCH (10:20)
[2022-05-22 10:29] LABS: HEMOGLOBIN 11.6 GM/dL (11.7-16.9); MCH 30.7 pg (25.7-33.7); MEAN CELL VOLUME 92.9 fl (80-96); MEAN PLT VOLUME 7.6 fl (7.5-11.1); PLATELET COUNT 319 10^3/uL (134-434); RBC 3.77 M/mm3 (4.00-5.60); WHITE BLOOD COUNT 8.6 K/mm3 (4.0-10.0)
[2022-05-22 10:45] LABS: CALCIUM 9.5 mg/dL (8.5-10.1)
[2022-05-22 10:46] LABS: BLOOD UREA NITROGEN 13.2 mg/dL (7-18)
[2022-05-22 10:49] LABS: CREATININE 0.6 mg/dL (0.55-1.3)
[2022-05-22 10:50] LABS: TOT PROT 7.4 g/dl (6.4-8.2)
[2022-05-22 10:51] LABS: BILIRUBIN,TOTAL 0.6 mg/dL (0.2-1)
[2022-05-22 11:07] LABS: SYPHILIS W/ RPR CONF NON-REACTIVE (NONREACTIVE)
[2022-05-22] MEDS ORDERED: ALBUTEROL SO4 HFA INHALER IH PRN (11:35)
[2022-05-22] MEDS: metFORMIN HCL 500 MG TABLET (FP) PO SCH (12:11)
[2022-05-22] MEDS: NICOTINE 10 MG CARTRIDGE (INHALER) IH SCH (12:11)
[2022-05-22] MEDS: METHOCARBAMOL 500 MG TABLET PO PRN ×3 (13:24→23:37)
[2022-05-22] MEDS: MELATONIN 5 MG TABLETS PO SCH (21:53)
[2022-05-22] MEDS: THIAMINE HCL 100 MG TABLET (FP) PO SCH (21:53)
[2022-05-22] MEDS: SUVOREXANT 10 MG TABLET PO PRN (21:55)
[2022-05-22] MEDS: LACOSAMIDE 50 MG TABLET PO SCH ×2 (23:11→23:38)
[2022-05-23] MEDS: hydrOXYzine PAMOATE 25 MG CAPSULE (FP) PO SCH ×5 (07:17→21:45)
[2022-05-23] MEDS: metFORMIN HCL 500 MG TABLET (FP) PO SCH (10:20)
[2022-05-23] MEDS: PRENATAL VITAMINS W/ FOLIC ACID TABLET (FP) PO SCH (10:20)
[2022-05-23] MEDS: LACOSAMIDE 50 MG TABLET PO SCH ×2 (10:20→21:44)
[2022-05-23] MEDS: metoPROLOL SUCCINATE 25 MG TAB.SR.24H (FP) PO SCH (10:20)
[2022-05-23] MEDS: METHOCARBAMOL 500 MG TABLET PO PRN ×3 (10:20→22:26)
[2022-05-23] MEDS: NICOTINE 7 MG/24 HOURS TOPICAL PATCH TD SCH (10:20)
[2022-05-23] MEDS: NICOTINE 10 MG CARTRIDGE (INHALER) IH SCH ×2 (10:21→20:41)
[2022-05-23] MEDS: IBUPROFEN 400 MG TABLET (FP) PO PRN (17:36)
[2022-05-23] MEDS: MELATONIN 5 MG TABLETS PO SCH (21:44)
[2022-05-23] MEDS: THIAMINE HCL 100 MG TABLET (FP) PO SCH (21:45)
[2022-05-24] MEDS: hydrOXYzine PAMOATE 25 MG CAPSULE (FP) PO SCH ×5 (06:18→21:16)
[2022-05-24] MEDS: METHOCARBAMOL 500 MG TABLET PO PRN ×3 (06:20→21:18)
[2022-05-24 07:04] VITALS: TEMP 99.1
[2022-05-24] MEDS: metoPROLOL SUCCINATE 25 MG TAB.SR.24H (FP) PO SCH (09:46)
[2022-05-24] MEDS: metFORMIN HCL 500 MG TABLET (FP) PO SCH (09:47)
[2022-05-24] MEDS: IBUPROFEN 400 MG TABLET (FP) PO PRN (09:48)
[2022-05-24] MEDS: NICOTINE 10 MG CARTRIDGE (INHALER) IH SCH (09:49)
[2022-05-24] MEDS: PRENATAL VITAMINS W/ FOLIC ACID TABLET (FP) PO SCH (09:49)
[2022-05-24] MEDS: NICOTINE 7 MG/24 HOURS TOPICAL PATCH TD SCH (11:01)
[2022-05-24] MEDS: LACOSAMIDE 50 MG TABLET PO SCH ×2 (11:01→21:17)
[2022-05-24 11:45] LABS: PH,URINE 6.5 (5.0-8.0); URINE APPEARANCE CLEAR; URINE BILIRUBIN 1+ (NEGATIVE); URINE COLOR DK YELLOW; URINE GLUCOSE (UA) NEGATIVE (NEGATIVE); URINE KETONE TRACE (NEGATIVE); URINE LEUK ESTERASE NEGATIVE (NEGATIVE); URINE NITRITE NEGATIVE (NEGATIVE); URINE PROTEIN TRACE (NEGATIVE)
[2022-05-24 12:23] VITALS: BP 113/81; PULSE 98
[2022-05-24] MEDS: THIAMINE HCL 100 MG TABLET (FP) PO SCH (21:16)
[2022-05-24] MEDS: MELATONIN 5 MG TABLETS PO SCH (21:16)
[2022-05-24] MEDS: SUVOREXANT 10 MG TABLET PO PRN (21:17)
[2022-05-25] MEDS: hydrOXYzine PAMOATE 25 MG CAPSULE (FP) PO SCH ×2 (06:47→11:09)
[2022-05-25] MEDS ORDERED: NICOTINE 10 MG CARTRIDGE (INHALER) IH PRN (09:37)
[2022-05-25] MEDS ORDERED: IBUPROFEN 600 MG TABLET (FP) PO PRN (09:39)
[2022-05-25] MEDS ORDERED: FERROUS SO4 325 MG TABLET (FP) PO SCH (10:00)
[2022-05-25] MEDS: metFORMIN HCL 500 MG TABLET (FP) PO SCH (11:08)
[2022-05-25] MEDS: metoPROLOL SUCCINATE 25 MG TAB.SR.24H (FP) PO SCH (11:09)
[2022-05-25] MEDS: LACOSAMIDE 50 MG TABLET PO SCH (11:09)
[2022-05-25] MEDS: PRENATAL VITAMINS W/ FOLIC ACID TABLET (FP) PO SCH (11:09)
== END 2022-05-25 10:50 | disposition left against medical advice (07) | DRG 770 ==
LOC: YASAS 13:32 → Y3N 17:23 → Y3W 17:49
PROVIDERS: ADMIT Allergy & Immunology; ATTEND Psychiatry & Neurology Pain Medicine
PROC: HZ42ZZZ Group Counseling for Substance Abuse Treatment, Cognitive-Behavioral (ICD-10-PCS; principal; 2022-05-21)
DX: F10.20 Alcohol dependence, uncomplicated (principal); F17.210 Nicotine dependence, cigarettes, uncomplicated; F31.9 Bipolar disorder, unspecified; F41.9 Anxiety disorder, unspecified; G47.00 Insomnia, unspecified; I10 Essential (primary) hypertension; E11.9 Type 2 diabetes mellitus without complications; Z79.84 Long term (current) use of oral hypoglycemic drugs; M25.571 Pain in right ankle and joints of right foot; M25.572 Pain in left ankle and joints of left foot; Z86.73 Personal history of transient ischemic attack (TIA), and cerebral infarction without residual deficits; Z91.51 Personal history of suicidal behavior; Z99.89 Dependence on other enabling machines and devices; Z88.6 Allergy status to analgesic agent; Z88.8 Allergy status to other drugs, medicaments and biological substances
CPT/HCPCS: 36415; 80053; 81003; 83036; 85027; 86780; 86803; C9803-CS; U0003; U0005